=== PATIENT | female | born 1985 | race Caucasian/White ===

== ENCOUNTER → 2020-11-16 | Outpatient (CLI) | payer OTHER ==
[2020-11-17 10:14] LABS: VITAMIN D, 25-HYDROXY 30.1 ng/mL (30.0-100.0)
== END ==
LOC: LAB 12:32
PROVIDERS: Internal Medicine
DX: M54.9 Dorsalgia, unspecified (principal); G89.29 Other chronic pain; L40.50 Arthropathic psoriasis, unspecified; E55.9 Vitamin D deficiency, unspecified; M25.40 Effusion, unspecified joint
CPT/HCPCS: 36415; 72202; 83520; 86200